=== PATIENT | female | born 1990 | race Caucasian/White ===

== ENCOUNTER → 2017-04-27 | Outpatient (CLI) | payer OTHER ==
[~2017-04-27] MED LIST: ANAPROX DS550 MG PO; BENTYL10 MG PO; CITALOPRAM HYDR20 MG PO; CLINDAMYCIN HC300 MG PO; DILANTIN100 MG PO; HYDROCODONE BIT1 T11 PO; KLONOPIN0.5 MG PO; KLONOPIN1 M1 PO; LYRICA100 M1 PO; NORCO 325 MG-51 TAB PO; PEN-VK500 MG PO; PERIDEX 480 ML480 ML PO; SEROQUEL XR400 MG PO; ZOFRAN ODT4 MG SL; ZOFRAN4 MG PO
== END | disposition home or self-care (01) ==
LOC: MRI 04-22 09:00
DX: M47.896 Other spondylosis, lumbar region (principal); M51.26 Other intervertebral disc displacement, lumbar region; M48.06 Spinal stenosis, lumbar region

== ENCOUNTER → 2017-05-18 | Outpatient (CLI) | payer OTHER ==
[2017-05-19 17:07] LABS: HCV RNA (INTERNATIONAL UNITS) 11200000 IU/mL (.); HEPATITIS C QNT See Final Results IU/mL (.)
== END | disposition home or self-care (01) ==
LOC: LAB 05-02 02:36 → US 05-02 11:00 → LAB 05-02 11:00
PROVIDERS: Internal Medicine Gastroenterology
DX: B19.20 Unspecified viral hepatitis C without hepatic coma (principal); R10.9 Unspecified abdominal pain; Z90.49 Acquired absence of other specified parts of digestive tract

== ENCOUNTER → 2017-05-19 | Outpatient (CLI) | payer OTHER | END | disposition home or self-care (01) | LOC: US 03:16 | DX: R10.9 Unspecified abdominal pain (principal) ==

== ENCOUNTER 2017-07-20 09:44 | Emergency (ER) | payer OTHER ==
[~2017-07-20] VITALS: Ht 157.4 cm; Wt 68.9 kg
[2017-07-20 10:31] LABS: BASO % 0.3 % (0.0-1.0); EOS % 0.4 % (1.0-4.0); HEMATOCRIT 37.3 % (37.0-47.0); HEMOGLOBIN 12.7 g/dl (12.0-16.0); LYMPH # 2.6 10*3/uL (1.3-4.4); LYMPH % 25.1 % (27.0-41.0); MEAN CELL VOLUME 85.9 fl (81.0-99.0); MEAN CORPUSCULAR HGB 29.3 pg (27.0-31.0); MEAN PLATELET VOLUME 9.8 fl (9.6-12.3); MONO # 0.5 10*3/uL (0.1-1.0); NEUT # 7.1 10*3/uL (2.3-7.9); NEUT % 68.9 % (47.0-73.0); PLATELET COUNT AUTOMATED 247 10*3/uL (130-400); RED BLOOD COUNT 4.34 10*6/uL (4.10-5.10); RED CELL DISTRI WIDTH 12.4 % (0-14.5); WHITE BLOOD COUNT 10.4 10*3/uL (4.8-10.8)
[2017-07-20 10:48] LABS: ALBUMIN 3.6 gm/dl (3.1-4.5); ALKALINE PHOSPHATASE 65 U/L (45-117); BUN 8 mg/dl (7-24); CHLORIDE 107 mmol/L (98-107); CREATININE 0.67 mg/dL (0.55-1.02); LIPASE 178 U/L (73-393); POTASSIUM 4.2 mmol/L (3.5-5.1); SGOT/AST 35 IU/L (3-35); SGPT/ALT 90 U/L (12-78); SODIUM 138 mmol/L (136-145); TOTAL PROTEIN 7.8 gm/dL (6.4-8.2)
[2017-07-20 11:30] LABS: BILIRUBIN NEGATIVE (NEGATIVE); BLOOD 3+ (NEGATIVE); CLARITY CLOUDY (CLEAR); COLOR YELLOW (YELLOW); GLUCOSE NEGATIVE (NEGATIVE); KETONE NEGATIVE (NEGATIVE); LEUKO ESTERASE NEGATIVE (NEGATIVE); NITRITE NEGATIVE (NEGATIVE); UROBILINOGEN 0.2 E.U./dl (0.2-1.0)
[2017-07-20 11:45] LABS: BACTERIA TRACE; EPITHELIAL CELLS 16-20; RBC TNTC rbc/hpf (0-2)
== END 2017-07-20 14:09 | disposition left against medical advice (07) ==
LOC: ED 09:44
PROVIDERS: Nurse Practitioner Family
DX: R11.2 Nausea with vomiting, unspecified (principal); R51 Headache; M54.2 Cervicalgia; Z88.2 Allergy status to sulfonamides; Z88.6 Allergy status to analgesic agent; Z79.899 Other long term (current) drug therapy

== ENCOUNTER 2017-08-13 08:58 | Emergency (ER) | payer OTHER ==
[~2017-08-13] VITALS: Ht 157.4 cm; Wt 68.0 kg
[2017-08-13] MEDS ORDERED: CLINDAMYCIN150 MG PO (09:12)
== END 2017-08-13 09:49 | disposition home or self-care (01) ==
LOC: ED 08:58
DX: K08.89 Other specified disorders of teeth and supporting structures (principal); R03.0 Elevated blood-pressure reading, without diagnosis of hypertension; Z88.2 Allergy status to sulfonamides; Z88.8 Allergy status to other drugs, medicaments and biological substances; Z79.899 Other long term (current) drug therapy; Z90.49 Acquired absence of other specified parts of digestive tract; Z98.51 Tubal ligation status

== ENCOUNTER 2017-08-18 20:10 | Emergency (ER) | payer OTHER ==
[~2017-08-18] VITALS: Ht 157.4 cm; Wt 68.0 kg
[~2017-08-18 20:10] MED LIST changes: +CLINDAMYCIN150 MG PO
[2017-08-18 20:45] LABS: BILIRUBIN NEGATIVE (NEGATIVE); BLOOD 3+ (NEGATIVE); CLARITY CLOUDY (CLEAR); COLOR YELLOW (YELLOW); GLUCOSE NEGATIVE (NEGATIVE); KETONE TRACE (NEGATIVE); LEUKO ESTERASE NEGATIVE (NEGATIVE); NITRITE NEGATIVE (NEGATIVE); SPECIFIC GRAVITY >= 1.030 (1.005-1.030); UROBILINOGEN 0.2 E.U./dl (0.2-1.0)
[2017-08-18 20:56] LABS: RBC TNTC rbc/hpf (0-2)
[2017-08-18 20:57] LABS: BASO % 0.1 % (0.0-1.0); EOS % 0.1 % (1.0-4.0); HEMATOCRIT 38.4 % (37.0-47.0); HEMOGLOBIN 12.6 g/dl (12.0-16.0); LYMPH # 2.9 10*3/uL (1.3-4.4); LYMPH % 15.7 % (27.0-41.0); MEAN CELL VOLUME 85.5 fl (81.0-99.0); MEAN CORPUSCULAR HGB 28.1 pg (27.0-31.0); MEAN CORPUSCULAR HGB CONC 32.8 g/dl (33.0-37.0); MEAN PLATELET VOLUME 9.4 fl (9.6-12.3); MONO # 1.4 10*3/uL (0.1-1.0); MONO % 7.5 % (3.0-9.0); NEUT % 75.1 % (47.0-73.0); PLATELET COUNT AUTOMATED 266 10*3/uL (130-400); RED BLOOD COUNT 4.49 10*6/uL (4.10-5.10); RED CELL DISTRI WIDTH 12.8 % (0-14.5); WHITE BLOOD COUNT 18.7 10*3/uL (4.8-10.8)
[2017-08-18 21:08] LABS: INTERNATIONAL NORM RATIO 0.9 (2.0-3.5)
[2017-08-18 21:14] LABS: ALBUMIN 3.4 gm/dl (3.1-4.5); ALKALINE PHOSPHATASE 70 U/L (45-117); BUN 13 mg/dl (7-24); CHLORIDE 104 mmol/L (98-107); CREATININE 0.74 mg/dL (0.55-1.02); POTASSIUM 3.9 mmol/L (3.5-5.1); SGOT/AST 11 IU/L (3-35); SGPT/ALT 36 U/L (12-78); SODIUM 139 mmol/L (136-145); TOTAL PROTEIN 7.4 gm/dL (6.4-8.2)
[2017-08-18 21:16] LABS: TROPONIN I < 0.015 ng/ml (<0.045)
[2017-08-18] MEDS ORDERED: Phenergan25 MG PO (23:27)
[2017-08-18] MEDS ORDERED: NORCO 5-325 TA1 EACH PO (23:47)
[2017-08-18] MEDS ORDERED: CLINDAMYCIN HC300 MG PO (23:47)
[2017-08-18] MEDS ORDERED: PROTONIX40 MG PO (23:47)
== END 2017-08-19 00:14 | disposition home or self-care (01) ==
LOC: ED 20:10
PROVIDERS: Physician Assistant
DX: M27.3 Alveolitis of jaws (principal); R10.9 Unspecified abdominal pain; Z87.442 Personal history of urinary calculi; Z88.2 Allergy status to sulfonamides; Z88.6 Allergy status to analgesic agent; Z90.49 Acquired absence of other specified parts of digestive tract

== ENCOUNTER 2017-10-09 11:47 | Inpatient (IN) | payer OTHER ==
[~2017-10-09] VITALS: Ht 157.4 cm; Wt 72.6 kg
--- NOTE | ~2017-10-09 | WRIGHTHP ---
[place], [place] PATIENT HISTORY AND PHYSICAL EXAM NAME: DIANA WALLACE [facility] #: [id number] UNIT #: [id number] ROOM: 528 DOCTOR: DEONTE DUQUE MD BIRTHDATE: [birth year] DOS: 10/09/2017 HISTORY OF PRESENT ILLNESS: The patient is 27 years old, not known to me. The patient of Dr. Cottrell, Dr. Cabral and Dr. Tolentino. The patient underwent an endoscopy 2 weeks ago for abdominal pain and was diagnosed with H. pylori. She was started on medications. She took 2 days of antibiotics and then developed severe nausea and abdominal pain and emesis and decided to come into the Emergency Room. Dr. Tolentino had advised her to discontinue the meds. After she was seen in the Emergency Room because of the continued nausea and abdominal pain, she was admitted. She also complains of some dark colored urine. Denies having any chest pains or palpitations, does not have any fever or chills. After she was admitted to the fifth floor, the patient states that she has had multiple emesis which even though the staff does not report seeing any emesis. This morning, the patient resting comfortably. Her significant other is with her. She does not appear to be in any distress, complains of abdominal pain and wants IV pain medications. PAST MEDICAL HISTORY: Significant for: 1. Hepatitis C, which was diagnosed recently, she has not been treated recent endoscopy biopsy. 2. Chronic back pain, followed by Dr. Cabral. She is on pain medications already. 3. History of cervical cancer. 4. History of cholecystectomy for biliary dyskinesia. Medications that the patient current is on are Klonopin 2 mg t.i.d., citalopram 40 daily, Adderall 20 daily, docusate 100 q.i.d., ibuprofen 800 t.i.d., loratadine 10 daily, Robaxin 750 q.i.d., ondansetron 8 mg q.i.d., Percocet 7.5 q. 6, Protonix 40 daily, Dilantin 100 b.i.d., Lyrica 100 b.i.d., Phenergan 25 q. 8, zolpidem 10 at bedtime, Nicotine patch. SOCIAL HISTORY: Smoker of about half a pack. Denies using any alcohol. PHYSICAL EXAMINATION: GENERAL: She on examination is awake and alert and oriented, does not appear to be in any distress. VITAL SIGNS: Blood pressure is 104/67, pulse of 63, respirations 16, temperature 97.8. LUNGS: Diminished breath sounds. No wheezes, rales, rhonchi heard. HEART: Regular. ABDOMEN: Obese, soft, some diffuse tenderness present. EXTREMITIES: Without any edema. LABORATORY DATA: Shows a white cell count of 12.1, hemoglobin 12.4, hematocrit 36.6, platelets 257. Comprehensive shows abnormal LFTs. Rest of the labs was within normal limits. Lipase was normal. ASSESSMENT AND PLAN: [place], [place] PATIENT HISTORY AND PHYSICAL EXAM [id number] UN[facility] #: [id number] ROOM: 52 DOCTOR: DEONTE DUQUE MD BIRTHDATE: [birth year] 1. The patient who presents with abdominal pain, nausea and emesis, is most likely acute gastritis from combination of Motrin as well as multiple antibiotics that she was given for her H. pylori infection. Those meds have been discontinued and she is started on Protonix IV. 2. Hepatitis C with abnormal LFTs. We will repeat the liver enzymes. CT of the abdomen and pelvis, discussed with Dr. Tolentino in detail. 3. Abnormal UA. Urine culture is showing Gram-positive cocci. We will add amoxicillin to her regimen and will await the complete culture reports. Hopefully, she can discharge in morning. DEONTE DUQUE MD CM:HISPHYS:PATIENT HISTORY AND PHYSICAL EXAMINATION [id number] DEONTE DUQUE MD 10/10/17 1048 interface
--- NOTE | ~2017-10-09 | CON ---
[place], [place] REPORT OF CONSULTATION [id number] UNIT #: [id number] ROOM: 528 DOCTOR: BETH BANG MD BIRTHDATE: [birth year] DOS: 10/09/2017 HISTORY OF PRESENT ILLNESS: The patient has presented with a chief complaint of nausea and vomiting. The patient with anorexia sensation. The patient has had endoscopic assessment done and we know that she is H. pylori positive. She has been given amoxicillin, Biaxin, and metronidazole combination in addition to Protonix b.i.d. However, she has not been able to tolerate more than 3 days of the medications with nausea, vomiting, diarrhea, and abdominal cramp as expected. She is also taking ibuprofen 4 times a day on top of that and is harsh on her stomach. PAST MEDICAL HISTORY: Anxiety, bipolar; chronic pain management, and H. pylori positivity. MEDICATIONS: Medication list has been reviewed. PAST SURGICAL HISTORY: Appendectomy, cholecystectomy, and tubal ligation. SOCIAL HISTORY: Nonsmoker, nonalcohol consumer. ALLERGIES: TORADOL. FAMILY HISTORY: Noncontributory. REVIEW OF SYSTEMS: HEENT: Denies double vision or blurred vision. RESPIRATORY: Denies acute shortness of breath. CARDIOVASCULAR: Denies acute chest pain. DIGESTIVE SYSTEM: Nausea and abdominal cramp. PHYSICAL EXAMINATION: VITAL SIGNS: Stable. HEENT: Head is normocephalic and nontraumatic. Mouth and buccal mucosa benign. NECK: Supple. No thyromegaly. No cervical lymphadenopathy. CHEST: Symmetric anatomy, equal expansion. No wheeze. No rhonchi. HEART: Normal sinus rhythm, no gallop, no murmur. ABDOMEN: Nonspecific abdominal distress. No pulsatile mass. EXTREMITIES: No cyanosis. No pedal edema. NEUROLOGIC: Alert and oriented to time, place, and person. IMPRESSION: Intolerance to triple antibiotics Amoxil, Flagyl, and Biaxin most likely gastritis in addition to all triple antibiotics in addition to the nonsteroidal anti-inflammatory ibuprofen on board 4 times a day, nausea secondary to above, and anxiety in addition. The patient is asking me for IV pain medication. We have been concerned if that is going to be an issue for her, she is already on Percocet 5/[address] Kerr, we are going to keep that ongoing. I am going to only give her 1 dose of Ativan to break the cycle of her distress and otherwise we are treating an intolerance to antibiotic with induction of severe gastritis while she is in the hospital. We are going to also do Carafate 2 grams q.i.d. Furthermore, she is complaining that she has [place], [place] REPORT OF CONSULTATION NAME: DIANA WALLACE UNIT #: [id number] ROOM: 528 DOCTOR: BETH BANG MD BIRTHDATE: [birth year] blood in her urine and she is showing pain around her flanks; therefore, I am going to get a sonographic study of her bilateral renal and urine culture sensitivity tomorrow as well as a urinalysis and looking for proteinuria and hematuria etiologies otherwise. As far as the antibiotic management of the H. pylori positivity is concerned due to the events that has happened and intolerance that she has, we are going to stop H. pylori therapy at this stage because all the medications that are needed are p.o. and she is right now in acute phase of gastritis; therefore, we will abort further therapy for now. BETH BANG MD CM:CONSTR:REPORT OF CONSULTATION 25 10/10/17 0000 interface
[~2017-10-09 11:47] MED LIST changes: +NORCO 5-325 TA1 EACH PO; +PROTONIX40 MG PO; +Phenergan25 MG PO
[2017-10-09 11:55] VITALS: BP 107/55
[2017-10-09 12:21] LABS: BASO % 0.1 % (0.0-1.0); EOS % 0.2 % (1.0-4.0); HEMATOCRIT 36.6 % (37.0-47.0); HEMOGLOBIN 12.4 g/dl (12.0-16.0); LYMPH # 3.2 10*3/uL (1.3-4.4); LYMPH % 26.8 % (27.0-41.0); MEAN CELL VOLUME 83.4 fl (81.0-99.0); MEAN CORPUSCULAR HGB 28.2 pg (27.0-31.0); MEAN CORPUSCULAR HGB CONC 33.9 g/dl (33.0-37.0); MEAN PLATELET VOLUME 9.3 fl (9.6-12.3); MONO # 0.5 10*3/uL (0.1-1.0); MONO % 3.9 % (3.0-9.0); NEUT # 8.3 10*3/uL (2.3-7.9); NEUT % 68.6 % (47.0-73.0); PLATELET COUNT AUTOMATED 257 10*3/uL (130-400); RED BLOOD COUNT 4.39 10*6/uL (4.10-5.10); RED CELL DISTRI WIDTH 12.1 % (0-14.5); WHITE BLOOD COUNT 12.1 10*3/uL (4.8-10.8)
[2017-10-09 12:37] LABS: ALBUMIN 3.6 gm/dl (3.1-4.5); ALKALINE PHOSPHATASE 58 U/L (45-117); BUN 6 mg/dl (7-24); CHLORIDE 108 mmol/L (98-107); CREATININE 0.62 mg/dL (0.55-1.02); LIPASE 111 U/L (73-393); SGOT/AST 78 IU/L (3-35); SGPT/ALT 212 U/L (12-78); SODIUM 139 mmol/L (136-145); TOTAL PROTEIN 8.2 gm/dL (6.4-8.2)
[2017-10-09 12:39] LABS: BILIRUBIN NEGATIVE (NEGATIVE); BLOOD 3+ (NEGATIVE); CLARITY TURBID (CLEAR); COLOR YELLOW (YELLOW); GLUCOSE NEGATIVE (NEGATIVE); KETONE NEGATIVE (NEGATIVE); LEUKO ESTERASE NEGATIVE (NEGATIVE); NITRITE NEGATIVE (NEGATIVE); PH 5.5 (5.0-9.0); SPECIFIC GRAVITY >= 1.030 (1.005-1.030); UROBILINOGEN 0.2 E.U./dl (0.2-1.0)
[2017-10-09 12:56] LABS: BACTERIA 2+; EPITHELIAL CELLS 21-30; RBC TNTC rbc/hpf (0-2); WBC 21-30 wbc/hpf (0-5)
[2017-10-09 16:00] VITALS: BP 103/55
[2017-10-09] MEDS ORDERED: ADDERALL 30 MG30 MG PO (16:07)
[2017-10-09] MEDS ORDERED: ROBAXIN-750750 MG PO (17:07)
[2017-10-09] MEDS ORDERED: GOOD NEIGHBOR L10 MG PO (17:07)
[2017-10-09] MEDS ORDERED: Motrin,Rufen800 MG PO (17:10)
[2017-10-09] MEDS ORDERED: ZOFRAN8 M1 PO (17:13)
[2017-10-09] MEDS ORDERED: ADDERALL XR 3030 MG PO (17:14)
[2017-10-09] MEDS ORDERED: DOCUSOFT-S100 MG PO (17:19)
[2017-10-09] MEDS ORDERED: PERCOCET 7.5-31 EACH PO (17:21)
[2017-10-09] MEDS ORDERED: AMBIENPAK10 MG PO (19:27)
[2017-10-09] MEDS ORDERED: NTS1 EACH TD (19:27)
[2017-10-09 20:12] VITALS: BP 113/54
[2017-10-10] VITALS: BP 104/60
[2017-10-10 08:00] VITALS: BP 105/67
[2017-10-10 11:12] LABS: ALKALINE PHOSPHATASE 72 U/L (45-117); BUN 6 mg/dl (7-24); CHLORIDE 107 mmol/L (98-107); POTASSIUM 4.1 mmol/L (3.5-5.1); SGOT/AST 68 IU/L (3-35); SGPT/ALT 171 U/L (12-78); SODIUM 140 mmol/L (136-145); TOTAL PROTEIN 7.3 gm/dL (6.4-8.2)
[2017-10-11 13:04] LABS: HEPATITIS B SURFACE AG Negative (Negative)
[2017-10-14 11:31] LABS: HEPATITIS C VIRUS ANTIBODY >11.0 s/co (0.0-0.9)
== END 2017-10-10 15:05 | disposition left against medical advice (07) | DRG 392 ==
LOC: ED 11:47 → EDHOLD 14:37 → 5E 14:49
PROVIDERS: Internal Medicine; Nurse Practitioner Family
DX: K29.70 Gastritis, unspecified, without bleeding (principal); B19.20 Unspecified viral hepatitis C without hepatic coma; F17.200 Nicotine dependence, unspecified, uncomplicated; G89.29 Other chronic pain; M54.9 Dorsalgia, unspecified; E66.9 Obesity, unspecified; F41.9 Anxiety disorder, unspecified; F31.9 Bipolar disorder, unspecified; Z53.21 Procedure and treatment not carried out due to patient leaving prior to being seen by health care provider; Z68.29 Body mass index [BMI] 29.0-29.9, adult; Z88.9 Allergy status to unspecified drugs, medicaments and biological substances; Z88.2 Allergy status to sulfonamides; Z85.89 Personal history of malignant neoplasm of other organs and systems; Z90.49 Acquired absence of other specified parts of digestive tract; Z98.51 Tubal ligation status; Z88.6 Allergy status to analgesic agent; R31.9 Hematuria, unspecified; R80.9 Proteinuria, unspecified

== ENCOUNTER 2017-11-03 18:41 | Emergency (ER) | payer OTHER ==
[~2017-11-03] VITALS: Ht 157.4 cm; Wt 68.0 kg
[~2017-11-03 18:41] MED LIST changes: +ADDERALL 30 MG30 MG PO; +ADDERALL XR 3030 MG PO; +AMBIENPAK10 MG PO; +DOCUSOFT-S100 MG PO; +GOOD NEIGHBOR L10 MG PO; +Motrin,Rufen800 MG PO; +NTS1 EACH TD; +PERCOCET 7.5-31 EACH PO; +ROBAXIN-750750 MG PO; +ZOFRAN8 M1 PO
[2017-11-03 19:58] LABS: BILIRUBIN NEGATIVE (NEGATIVE); BLOOD 3+ (NEGATIVE); CLARITY CLOUDY (CLEAR); COLOR RED (YELLOW); GLUCOSE NEGATIVE (NEGATIVE); KETONE NEGATIVE (NEGATIVE); LEUKO ESTERASE NEGATIVE (NEGATIVE); NITRITE POSITIVE (NEGATIVE); SPECIFIC GRAVITY 1.015 (1.005-1.030); UROBILINOGEN 0.2 E.U./dl (0.2-1.0)
[2017-11-03 19:59] LABS: BASO % 0.3 % (0.0-1.0); EOS # 0.1 10*3/uL (0.0-0.4); EOS % 0.8 % (1.0-4.0); HEMATOCRIT 36.5 % (37.0-47.0); HEMOGLOBIN 12.3 g/dl (12.0-16.0); LYMPH # 3.7 10*3/uL (1.3-4.4); MEAN CELL VOLUME 84.1 fl (81.0-99.0); MEAN CORPUSCULAR HGB 28.3 pg (27.0-31.0); MEAN CORPUSCULAR HGB CONC 33.7 g/dl (33.0-37.0); MEAN PLATELET VOLUME 9.9 fl (9.6-12.3); MONO # 0.4 10*3/uL (0.1-1.0); MONO % 4.9 % (3.0-9.0); NEUT # 4.5 10*3/uL (2.3-7.9); NEUT % 51.5 % (47.0-73.0); PLATELET COUNT AUTOMATED 250 10*3/uL (130-400); RED BLOOD COUNT 4.34 10*6/uL (4.10-5.10); WHITE BLOOD COUNT 8.8 10*3/uL (4.8-10.8)
[2017-11-03 20:04] LABS: RBC TNTC rbc/hpf (0-2)
[2017-11-03 20:13] LABS: ALBUMIN 3.7 gm/dl (3.1-4.5); ALKALINE PHOSPHATASE 67 U/L (45-117); BUN 10 mg/dl (7-24); CHLORIDE 105 mmol/L (98-107); LIPASE 136 U/L (73-393); POTASSIUM 3.8 mmol/L (3.5-5.1); SGOT/AST 23 IU/L (3-35); SGPT/ALT 34 U/L (12-78); SODIUM 139 mmol/L (136-145); TOTAL PROTEIN 7.5 gm/dL (6.4-8.2)
[2017-11-03] MEDS ORDERED: MACROBID100 M1 PO (20:38)
== END 2017-11-03 21:03 | disposition home or self-care (01) ==
LOC: ED 18:41
PROVIDERS: Physician Assistant
DX: N39.0 Urinary tract infection, site not specified (principal); R11.2 Nausea with vomiting, unspecified; F17.200 Nicotine dependence, unspecified, uncomplicated; Z88.2 Allergy status to sulfonamides; Z91.040 Latex allergy status; Z88.5 Allergy status to narcotic agent; Z88.8 Allergy status to other drugs, medicaments and biological substances; Z79.899 Other long term (current) drug therapy; Z90.49 Acquired absence of other specified parts of digestive tract; Z98.51 Tubal ligation status

== ENCOUNTER 2018-07-30 15:48 | Emergency (ER) | payer OTHER ==
[~2018-07-30] VITALS: Ht 157.4 cm; Wt 68.0 kg
[~2018-07-30 15:48] MED LIST changes: +MACROBID100 M1 PO
[2018-07-30 16:46] LABS: BASO % 0.2 % (0.0-1.0); EOS % 0.3 % (1.0-4.0); HEMATOCRIT 35.9 % (37.0-47.0); HEMOGLOBIN 12.1 g/dl (12.0-16.0); LYMPH # 2.8 10*3/uL (1.3-4.4); LYMPH % 32.7 % (27.0-41.0); MEAN CELL VOLUME 86.9 fl (81.0-99.0); MEAN CORPUSCULAR HGB 29.3 pg (27.0-31.0); MEAN CORPUSCULAR HGB CONC 33.7 g/dl (33.0-37.0); MEAN PLATELET VOLUME 9.1 fl (9.6-12.3); MONO # 0.5 10*3/uL (0.1-1.0); MONO % 5.9 % (3.0-9.0); NEUT # 5.2 10*3/uL (2.3-7.9); NEUT % 60.7 % (47.0-73.0); PLATELET COUNT AUTOMATED 237 10*3/uL (130-400); RED BLOOD COUNT 4.13 10*6/uL (4.10-5.10); WHITE BLOOD COUNT 8.7 10*3/uL (4.8-10.8)
[2018-07-30 17:03] LABS: ALBUMIN 3.4 gm/dl (3.1-4.5); ALKALINE PHOSPHATASE 50 U/L (45-117); BUN 10 mg/dl (7-24); CHLORIDE 110 mmol/L (98-107); CREATININE 0.62 mg/dL (0.55-1.02); LIPASE 154 U/L (73-393); POTASSIUM 3.6 mmol/L (3.5-5.1); SGOT/AST 45 IU/L (3-35); SGPT/ALT 109 U/L (12-78); SODIUM 140 mmol/L (136-145); TOTAL PROTEIN 7.3 gm/dL (6.4-8.2)
[2018-07-30 17:07] LABS: TROPONIN I < 0.015 ng/ml (<0.045)
[2018-07-30] MEDS ORDERED: CLINDAMYCIN HC300 MG PO (18:46)
== END 2018-07-30 18:22 | disposition home or self-care (01) ==
LOC: ED 15:48
PROVIDERS: Physician Assistant
DX: N61.1 Abscess of the breast and nipple (principal); I80.9 Phlebitis and thrombophlebitis of unspecified site; Z88.2 Allergy status to sulfonamides; Z88.6 Allergy status to analgesic agent; Z91.040 Latex allergy status; Z88.8 Allergy status to other drugs, medicaments and biological substances; Z79.899 Other long term (current) drug therapy; Z90.49 Acquired absence of other specified parts of digestive tract

== ENCOUNTER 2018-12-06 17:11 | Emergency (ER) | payer OTHER ==
[~2018-12-06] VITALS: Ht 157.4 cm; Wt 66.2 kg
[2018-12-06] MEDS ORDERED: NAPROSYN500 MG PO (19:49)
[2018-12-06] MEDS ORDERED: MEDROL DOSEPAK4 MG PO (19:49)
[2018-12-06] MEDS ORDERED: ROBAXIN500 M1 PO (19:49)
[2018-12-24] MEDS ORDERED: CYCLOBENZAPRINE10 MG PO (19:35)
[2018-12-24] MEDS ORDERED: PREDNISONE50 MG PO (19:35)
== END 2018-12-06 20:18 | disposition home or self-care (01) ==
LOC: ED 17:11
DX: S16.1XXA Strain of muscle, fascia and tendon at neck level, initial encounter (principal); S40.011A Contusion of right shoulder, initial encounter; Z88.2 Allergy status to sulfonamides; Z88.6 Allergy status to analgesic agent; Z91.040 Latex allergy status; Z88.8 Allergy status to other drugs, medicaments and biological substances; Z79.2 Long term (current) use of antibiotics; Z79.899 Other long term (current) drug therapy; X58.XXXA Exposure to other specified factors, initial encounter; Y93.89 Activity, other specified; Y92.410 Unspecified street and highway as the place of occurrence of the external cause; Y99.8 Other external cause status

== ENCOUNTER 2019-09-30 15:38 | Emergency (ER) | payer OTHER ==
[~2019-09-30] VITALS: Ht 157.4 cm; Wt 59.4 kg
[~2019-09-30 15:38] MED LIST changes: +CYCLOBENZAPRINE10 MG PO; +MEDROL DOSEPAK4 MG PO; +NAPROSYN500 MG PO; +PREDNISONE50 MG PO; +ROBAXIN500 M1 PO
[2019-09-30 16:55] LABS: BASO % 0.2 % (0.0-1.0); EOS # 0.1 10*3/uL (0.0-0.4); EOS % 0.9 % (1.0-4.0); HEMATOCRIT 39.7 % (37.0-47.0); HEMOGLOBIN 13.2 g/dl (12.0-16.0); LYMPH # 3.7 10*3/uL (1.3-4.4); LYMPH % 40.4 % (27.0-41.0); MEAN CELL VOLUME 84.6 fl (81.0-99.0); MEAN CORPUSCULAR HGB 28.1 pg (27.0-31.0); MEAN CORPUSCULAR HGB CONC 33.2 g/dl (33.0-37.0); MONO # 0.6 10*3/uL (0.1-1.0); MONO % 5.9 % (3.0-9.0); NEUT # 4.8 10*3/uL (2.3-7.9); NEUT % 52.2 % (47.0-73.0); PLATELET COUNT AUTOMATED 309 10*3/uL (130-400); RED BLOOD COUNT 4.69 10*6/uL (4.10-5.10); RED CELL DISTRI WIDTH 12.6 % (0-14.5); WHITE BLOOD COUNT 9.3 10*3/uL (4.8-10.8)
[2019-09-30 17:06] LABS: ACT PARTIAL THROMBO TIME 24.5 SECONDS (20.0-32.1); INTERNATIONAL NORM RATIO 0.9 (2.0-3.5)
[2019-09-30 17:11] LABS: ALBUMIN 3.3 gm/dl (3.1-4.5); ALKALINE PHOSPHATASE 69 U/L (45-117); BUN 9 mg/dl (7-24); CHLORIDE 111 mmol/L (98-107); CREATININE 0.68 mg/dL (0.55-1.02); LIPASE 337 U/L (73-393); POTASSIUM 3.5 mmol/L (3.5-5.1); SGOT/AST 35 IU/L (3-35); SGPT/ALT 70 U/L (12-78); SODIUM 142 mmol/L (136-145); TOTAL PROTEIN 7.4 gm/dL (6.4-8.2)
[2019-09-30 17:12] LABS: BETA-HCG, QUANT < 1.0 mIU/mL (1-3); PHENYTOIN (DILANTIN) < 0.4 ug/ml (10-20); TROPONIN I < 0.015 ng/ml (<0.045); VALPROIC ACID (DEPAKENE) < 3.0 ug/ml (50-100)
[2019-09-30 17:25] LABS: BILIRUBIN NEGATIVE (NEGATIVE); BLOOD TRACE-INTACT (NEGATIVE); CLARITY CLEAR (CLEAR); COLOR YELLOW (YELLOW); GLUCOSE NEGATIVE (NEGATIVE); KETONE NEGATIVE (NEGATIVE); LEUKO ESTERASE NEGATIVE (NEGATIVE); NITRITE NEGATIVE (NEGATIVE); UROBILINOGEN 0.2 E.U./dl (0.2-1.0)
[2019-09-30 17:41] LABS: BACTERIA TRACE
[2019-09-30] MEDS ORDERED: AUGMENTIN 875875 MG PO (19:07)
[2019-09-30] MEDS ORDERED: PERCOCET 5-3251 EACH PO (19:07)
== END 2019-09-30 19:33 | disposition home or self-care (01) ==
LOC: ED 15:38
PROVIDERS: Emergency Medicine
DX: S02.32XA Fracture of orbital floor, left side, initial encounter for closed fracture (principal); J45.909 Unspecified asthma, uncomplicated; Z88.2 Allergy status to sulfonamides; Z88.6 Allergy status to analgesic agent; Z91.040 Latex allergy status; Z88.8 Allergy status to other drugs, medicaments and biological substances; Z79.2 Long term (current) use of antibiotics; Z79.899 Other long term (current) drug therapy; Z90.49 Acquired absence of other specified parts of digestive tract; W22.8XXA Striking against or struck by other objects, initial encounter; Y93.89 Activity, other specified; Y92.89 Other specified places as the place of occurrence of the external cause; Y99.8 Other external cause status

== ENCOUNTER 2019-10-05 06:50 | Emergency (ER) | payer OTHER ==
[~2019-10-05] VITALS: Ht 157.4 cm; Wt 51.3 kg
[~2019-10-05 06:50] MED LIST changes: +AUGMENTIN 875875 MG PO; +PERCOCET 5-3251 EACH PO
== END 2019-10-05 07:31 | disposition home or self-care (01) ==
LOC: ED 06:50
DX: S02.32XD Fracture of orbital floor, left side, subsequent encounter for fracture with routine healing (principal); Z76.0 Encounter for issue of repeat prescription; F41.9 Anxiety disorder, unspecified; F31.9 Bipolar disorder, unspecified; J45.909 Unspecified asthma, uncomplicated; Z88.2 Allergy status to sulfonamides; Z88.6 Allergy status to analgesic agent; Z91.040 Latex allergy status; Z88.8 Allergy status to other drugs, medicaments and biological substances; Z79.899 Other long term (current) drug therapy; Z79.2 Long term (current) use of antibiotics; W19.XXXD Unspecified fall, subsequent encounter

== ENCOUNTER → 2020-04-30 | Outpatient (CLI) | payer OTHER ==
[2020-05-01 20:11] LABS: BARBITURATE, URINE Negative ng/mL (Cutoff=200); CANNABINOID, URINE Negative ng/mL (Cutoff=20); CREATININE, UR 165.7 mg/dL (20.0-300.0); PH URINE 6.9 (4.5-8.9)
== END ==
LOC: LAB 14:27
DX: Z79.899 Other long term (current) drug therapy (principal)

== ENCOUNTER 2020-09-29 11:30 | Emergency (ER) | payer OTHER ==
[~2020-09-29] VITALS: Ht 157.4 cm; Wt 61.2 kg
[2020-09-29] MEDS ORDERED: ROBAXIN-750750 MG PO (14:31)
[2020-09-29] MEDS ORDERED: IBUPROFEN600 MG PO (14:31)
== END 2020-09-29 14:34 | disposition home or self-care (01) ==
LOC: ED 11:30
DX: S13.9XXA Sprain of joints and ligaments of unspecified parts of neck, initial encounter (principal); S33.5XXA Sprain of ligaments of lumbar spine, initial encounter; Z88.2 Allergy status to sulfonamides; Z91.040 Latex allergy status; Z88.6 Allergy status to analgesic agent; Z79.899 Other long term (current) drug therapy; V89.2XXA Person injured in unspecified motor-vehicle accident, traffic, initial encounter; Y93.89 Activity, other specified; Y92.89 Other specified places as the place of occurrence of the external cause; Y99.8 Other external cause status

== ENCOUNTER → 2021-12-11 | Outpatient (CLI) | payer OTHER ==
[~2021-12-11] MED LIST changes: +IBUPROFEN600 MG PO
== END | disposition home or self-care (01) ==
LOC: RAD 12:18
PROVIDERS: ATTEND Family Medicine
DX: M48.07 Spinal stenosis, lumbosacral region (principal); M25.78 Osteophyte, vertebrae; M54.50 Low back pain, unspecified

== ENCOUNTER 2022-03-18 12:07 | Emergency (ER) | payer OTHER ==
[~2022-03-18] VITALS: Wt 73.0 kg
== END 2022-03-18 13:20 | disposition home or self-care (01) ==
LOC: ED 12:07
DX: M54.50 Low back pain, unspecified (principal); Z91.040 Latex allergy status; Z88.6 Allergy status to analgesic agent; Z79.899 Other long term (current) drug therapy; Z90.49 Acquired absence of other specified parts of digestive tract; Z98.51 Tubal ligation status

== ENCOUNTER 2022-03-27 12:21 | Emergency (ER) | payer OTHER ==
[~2022-03-27] VITALS: Ht 157.4 cm; Wt 64.0 kg
[2022-03-27] MEDS ORDERED: AUGMENTIN 875-875 MG PO (13:28)
== END 2022-03-27 13:41 | disposition home or self-care (01) ==
LOC: ED 12:21
DX: S02.5XXA Fracture of tooth (traumatic), initial encounter for closed fracture (principal); Z91.040 Latex allergy status; Z88.6 Allergy status to analgesic agent; Z79.899 Other long term (current) drug therapy; Z98.51 Tubal ligation status; Z90.49 Acquired absence of other specified parts of digestive tract; X58.XXXA Exposure to other specified factors, initial encounter; Y93.89 Activity, other specified; Y92.89 Other specified places as the place of occurrence of the external cause; Y99.8 Other external cause status